=== PATIENT | female | born 1960 | race Caucasian/White ===

== ENCOUNTER 2023-10-22 06:41 | Day surgery (SDC) | payer OTHER ==
[~2023-10-22] VITALS: Ht 160 cm; Wt 52.9 kg
[~2023-10-22 06:41] MED LIST: CEFAZOLIN SOD 2 GM in D5W 50 ML IV ONE; VANCOMYCIN HCL 1,000 MG in NS 250 ML IV ONE
[2023-10-22] MEDS ORDERED: ONDANSETRON 4 MG ODT TAB ONE (06:57)
[2023-10-22] MEDS ORDERED: ACETAMINOPHEN 500 MG TABLET ONE (06:57)
[2023-10-22] MEDS ORDERED: CELECOXIB 200 MG CAPSULE ONE (06:58)
[2023-10-22] MEDS ORDERED: GABAPENTIN 400 MG CAPSULE ONE (06:58)
[2023-10-22] MEDS ORDERED: SCOPOLAMINE HYDROBROMIDE 1 MG PATCH .72 H (TRANSDERM-SCOP) TD ONE (06:58)
[2023-10-22] MEDS ORDERED: oxyCODONE HCL 10 MG TAB.ER.12H PO ONE (06:58)
[2023-10-22] MEDS: CELECOXIB 200 MG CAPSULE PO ONE (07:36)
[2023-10-22] MEDS: ONDANSETRON 4 MG ODT TAB PO ONE (07:36)
[2023-10-22] MEDS: ACETAMINOPHEN 500 MG TABLET PO ONE (07:36)
[2023-10-22] MEDS: GABAPENTIN 400 MG CAPSULE PO ONE (07:36)
[2023-10-22] MEDS: SCOPOLAMINE HYDROBROMIDE 1 MG PATCH .72 H (TRANSDERM-SCOP) TD ONE (07:36)
[2023-10-22] MEDS ORDERED: MEPERIDINE HCL/PF 50 MG/ML VIAL ONE (10:30)
[2023-10-22] MEDS ORDERED: EPINEPHRINE HCL/PF 1 MG/ML AMP ONE (10:30)
[2023-10-22] MEDS ORDERED: KETOROLAC TROMETHAMINE 30 MG VIAL ONE (10:30)
[2023-10-22] MEDS ORDERED: NS IRRIG SOLN 1000 ML IR ONE (10:30)
[2023-10-22] MEDS ORDERED: ROPIVACAINE HCL/PF 5 MG/ML 0.5% 30 ML VIAL ONE (10:30)
[2023-10-22] MEDS ORDERED: NS 1000 ML IV.SOLN IV ONE (10:30)
[2023-10-22] MEDS ORDERED: VANCOMYCIN HCL 1000 MG/VIAL IV ONE (10:30)
[2023-10-22] MEDS ORDERED: NS 50 ML BAG IV ONE (10:30)
[2023-10-22] MEDS ORDERED: TRANEXAMIC ACID 1,000 MG/10 ML VIAL ONE (10:30)
[2023-10-22] MEDS: oxyCODONE HCL 10 MG TAB.ER.12H PO ONE (10:38)
[2023-10-22] MEDS ORDERED: MIDAZOLAM HCL 2 MG/2 ML VIAL (VERSED) ONE (10:46)
[2023-10-22] MEDS ORDERED: fentaNYL CITRATE/PF 100 MCG/2 ML AMP ONE (10:47)
[2023-10-22] MEDS ORDERED: ROCURONIUM BROMIDE 10 MG/ML (ZEMURON) ONE (10:48)
[2023-10-22 11:34] VITALS: PULSE 59; RESP 18; TEMP 97.8; O2SAT 99
[2023-10-22] MEDS ORDERED: TURM1CAP2 PO (12:19)
[2023-10-22] MEDS ORDERED: [UNRECOGNIZED DRUG - OTHER] (12:19)
[2023-10-22] MEDS ORDERED: OMEG100037 PO (12:19)
[2023-10-22] MEDS ORDERED: ONDANSETRON HCL 4 MG/2 ML VIAL IVP PRN ×2 (12:30→13:30)
[2023-10-22] MEDS ORDERED: ePHEDrine sulfate 50 MG/ML VIAL IVP PRN (12:30)
[2023-10-22] MEDS ORDERED: MEPERIDINE HCL/PF 25 MG/ML DISP.SYRIN IVP PRN (12:30)
[2023-10-22] MEDS ORDERED: LR 1,000 ML IV SCH (12:30)
[2023-10-22] MEDS ORDERED: KETOROLAC TROMETHAMINE 30 MG VIAL IVP PRN (12:30)
[2023-10-22] MEDS ORDERED: HYDROcodone/ACETAMIN 7.5-325 MG TAB PO PRN (13:30)
[2023-10-22] MEDS ORDERED: ACETAMINOPHEN 325 MG TABLET PO PRN ×3 (13:30→13:45)
[2023-10-22] MEDS ORDERED: HYDROcodone/ACETAMIN 5-325 MG TAB (NORCO/ VICODIN) PO PRN (13:30)
[2023-10-22] MEDS ORDERED: SENNOSIDES 8.6 MG TABLET PO PRN (13:30)
[2023-10-22 14:52] VITALS: BP_SYST 126
[2023-10-22] MEDS ORDERED: CEFAZOLIN 1 GM IVPB PREMIX 50 ML IV SCH (21:00)
== END 2023-10-22 17:20 | disposition home or self-care (01) ==
LOC: SDS 06:41 → SMU 06:44 → SDS 17:20
PROVIDERS: ATTEND Orthopaedic Surgery
DX: M16.11 Unilateral primary osteoarthritis, right hip (principal); Z87.891 Personal history of nicotine dependence
CPT/HCPCS: 86886; 86900; 86901; 87081; 36415; 73501; 27130; 73502; 88304; 88311; Q0162; J0690; J0171; J1885; J3465; J3370; J3010; J2175; J3490; J7060; J7050; J7030; C1776